=== PATIENT | male | born 1940 | race Caucasian/White ===

== ENCOUNTER → 2019-04-18 | Outpatient (CLI) | payer MEDICARE ==
--- NOTE | 2019-04-18 13:59 | RAD ---
EXAM DESCRIPTION: Pelvis CLINICAL HISTORY: 78 years Male, M25.562, M25.552 COMPARISON: None. FINDINGS: Single view of the pelvis demonstrates advanced degenerative changes both hips without fracture or dislocation. The superior and inferior pubic rami as well as the symphysis pubis and SI joints are intact. No pelvic fracture or soft tissue mass noted. IMPRESSION: Degenerative hips with intact pelvis. Electronically signed by: Chidi Cerrato MD 04/18/2019 1:57 PM CDT
--- NOTE | 2019-04-18 14:01 | RAD ---
EXAM DESCRIPTION: Knee,Left Complete CLINICAL HISTORY: 78 years, Male, M25.562, M25.552 COMPARISON: None TECHNIQUE: Four views left knee FINDINGS: Advanced degenerative changes with [id number] appearance of the medial joint compartment with subchondral sclerosis and better preserved lateral joint compartment noted. Moderate patellofemoral degenerative arthritis with marginal osteophytes is present. No large joint effusion noted. IMPRESSION: 1. Advanced degenerative changes left knee. Electronically signed by: Chidi Cerrato MD 04/18/2019 1:58 PM CDT
== END ==
LOC: RAD 09:05
PROVIDERS: ATTEND Orthopaedic Surgery
DX: Z01.818 Encounter for other preprocedural examination (principal); M16.0 Bilateral primary osteoarthritis of hip; M17.12 Unilateral primary osteoarthritis, left knee

== ENCOUNTER → 2019-05-23 | Day surgery (SDC) | payer MEDICARE ==
--- NOTE | 2019-05-16 13:26 | HP ---
CHIEF COMPLAINT: Knee pain. HISTORY OF PRESENT ILLNESS: Fritz is a 78-year-old male with a history of pain in the knee that has been going on for several years and it has been getting progressively worse. He has had conservative measures which have included anti- inflammatories, occasional assistive devices, injections and activity modification. The pain that he has sometimes reaches level of 8 to 9 and inhibits his activities. It is sharp in nature and occasionally is associated with some mechanical symptoms. X-rays show severe arthritis. Because of that and his failure of conservative measures, he has requested operative intervention. After discussing the risks, benefits and alternatives to that, he has given informed consent for total knee arthroplasty. PAST SURGICAL HISTORY: 1. Herniorrhaphy. 2. Cholecystectomy. 3. Lumbar surgery. MEDICATIONS: None currently. ALLERGIES: TYLENOL, PENICILLIN. CODE STATUS: Full code. IMMUNIZATIONS: Up to date. SOCIAL HISTORY: The patient does not drink, smoke or use any illicit drugs. FAMILY HISTORY: None pertinent to today's complaint. REVIEW OF SYSTEMS: Negative except as indicated in the History of Present Illness. PHYSICAL EXAMINATION: VITAL SIGNS: Blood pressure 109/55. Pulse 72. Height 5'11". Weight 206 pounds. MENTAL STATUS: The patient is awake, alert, and is able to give a good history and participate in the physical. The patient is oriented to person, place and time. SKIN: Normal tone and turgor. HEENT: Normocephalic, atraumatic. Pupils equal, round and reactive. Mucosal membranes are moist. NECK: Normal range of motion. No thyromegaly, no lymphadenopathy. CHEST: Normal respiratory excursion. CARDIAC: Regular rate and rhythm. No murmurs, rubs or gallops. MUSCULOSKELETAL: The bilateral upper extremities show full active range of motion without significant pain. He has intact sensation and they are warm and well perfused. Strength is 5/5. He has no malalignment or crepitus. The right lower extremity shows no pain with range of motion of the hip. He has some minor discomfort with range of motion of the knee. He has crepitus with range of motion of the knee. Sensation is intact. There is no varus/valgus or anterior/posterior laxity. Strength is 5/5. It is warm and well perfused. The left knee shows diffuse pain, especially along the joint-line. The extremity is warm and well perfused. He has crepitus throughout his range of motion and has full extension. Flexion is to about 110 degrees. He has no varus/valgus or anterior/posterior laxity. He has a slight antalgic gait. The hip shows no pain with range of motion. Sensation is intact throughout. It is warm and well perfused. IMAGING: X-rays show severe arthritis. ASSESSMENT: 1. Arthritis. PLAN: The plan at this point is for total knee arthroplasty. We have discussed the risks, benefits, and alternatives to that and the patient has given informed consent. #[id number] [facility]
== END ==
LOC: AMB 05:35
PROVIDERS: ATTEND Orthopaedic Surgery
DX: M17.10 Unilateral primary osteoarthritis, unspecified knee (principal); Z80.0 Family history of malignant neoplasm of digestive organs; Z88.6 Allergy status to analgesic agent; Z53.09 Procedure and treatment not carried out because of other contraindication; Z90.49 Acquired absence of other specified parts of digestive tract

== ENCOUNTER 2019-06-22 14:36 | Emergency (ER) | payer MEDICARE ==
--- NOTE | 2019-06-22 14:52 | ED.PDOC ---
History of Present Illness - General Chief Complaint: Chest Pain/NC Time Seen by Provider: 06/22/19 14:40 Source: patient, family Exam Limitations: no limitations - History of Present Illness Initial Comments: Patient presents with chest pain for 3 hours. Mid-sternal and crushing. Non- radiating. Has improved since onset. Has had previous episodes in the distant past. 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 Associated with dyspnea at onset that has since resolved. No other complaints. The patient said that he is preparing to get knee surgery so he had a "cardiac" workup yesterday. Timing/Duration: 1-3 hours Severity: moderate Improving Factors: nothing Worsening Factors: nothing Associated Symptoms: other - as in HPI Allergies/Adverse Reactions: Allergies Acetaminophen [From Tylenol] Allergy (Verified 05/15/19 10:06) Penicillins Allergy (Verified 05/15/19 10:06) Home Medications: Ambulatory Orders NK 06/22/19 Review of Systems - Review of Systems Constitutional: States: no symptoms reported EENTM: States: no symptoms reported Respiratory: States: see HPI Cardiology: States: see HPI Gastrointestinal/Abdominal: States: no symptoms reported Genitourinary: States: no symptoms reported Musculoskeletal: States: no symptoms reported Skin: States: no symptoms reported Neurological: States: see HPI Endocrine: States: no symptoms reported Hematologic/Lymphatic: States: no symptoms reported Past Medical History (General) - Patient Medical History Hx MRSA: No Family Medical History - Family History Father Living Status: Hx Family Cancer: Yes Physical Exam - Physical Exam General Appearance: Alert Eye Exam: bilateral normal Ears, Nose, Throat: normal ENT inspection Neck: non-tender, full range of motion, supple Respiratory: lungs clear, normal breath sounds Cardiovascular/Chest: normal peripheral pulses, regular rate, rhythm, no edema Gastrointestinal/Abdominal: normal bowel sounds, non tender, soft Back Exam: normal inspection, no CVA tenderness Extremity: normal range of motion, non-tender, normal inspection Neurologic: no motor/sensory deficits, alert, normal mood/affect, oriented x 3 Skin Exam: normal color Lymphatic: no adenopathy Progress - Progress Progress: 06/22/19 17:47 Laboratory Tests 06/22/19 06/22/19 06/22/19 14:55 14:55 14:55 WBC 6.2 RBC 4.89 Hgb 14.8 Hct 43.6 MCV 89.2 MCH 30.3 MCHC 34.0 RDW 14.2 Plt Count 170 MPV 9.0 Absolute Neuts (auto) 2.90 Absolute Lymphs (auto) 2.30 Absolute Monos (auto) 0.80 Absolute Eos (auto) 0.10 Absolute Basos (auto) 0.00 Neutrophils % 46.1 Lymphocytes % 37.5 Monocytes % 13.4 H Eosinophils % 2.3 Basophils % 0.7 PT 9.8 INR 0.98 PTT (SP) 22.7 D-Dimer, Quantitative Sodium 140 Potassium 3.6 Chloride 109 Carbon Dioxide 22 Anion Gap 12.6 BUN 22 H Creatinine 1.24 BUN/Creatinine Ratio 17.7 Random Glucose 90 Serum Osmolality 282.3 Calcium 9.0 Total Bilirubin 0.9 AST 19 ALT 15 Alkaline Phosphatase 38 L Creatine Kinase CK-MB (CK-2) CK-MB (CK-2) % Troponin I B-Natriuretic Peptide Serum Total Protein 6.7 Albumin 3.9 Globulin 2.8 Albumin/Globulin Ratio 1.4 Urine Color Urine Appearance Urine pH Ur Specific Worth[place] Urine Protein Urine Glucose (UA) Urine Ketones Urine Blood Urine Nitrite Urine Bilirubin Urine Urobilinogen Ur Leukocyte Esterase Urine RBC Urine WBC Ur Epithelial Cells Urine Bacteria 06/22/19 06/22/19 06/22/19 14:55 14:55 16:15 WBC RBC Hgb Hct MCV MCH MCHC RDW Plt Count MPV Absolute Neuts (auto) Absolute Lymphs (auto) Absolute Monos (auto) Absolute Eos (auto) Absolute Basos (auto) Neutrophils % Lymphocytes % Monocytes % Eosinophils % Basophils % PT INR PTT (SP) D-Dimer, Quantitative 0.74 H* Sodium Potassium Chloride Carbon Dioxide Anion Gap BUN Creatinine BUN/Creatinine Ratio Random Glucose Serum Osmolality Calcium Total Bilirubin AST ALT Alkaline Phosphatase Creatine Kinase 70 CK-MB (CK-2) 1.1 CK-MB (CK-2) % Not Reportable Troponin I < 0.02 B-Natriuretic Peptide 94.6 Serum Total Protein Albumin Globulin Albumin/Globulin Ratio Urine Color Yellow Urine Appearance Clear Urine pH 6.0 Ur Specific Wortham 1.010 Urine Protein Negative Urine Glucose (UA) Negative Urine Ketones Negative Urine Blood Negative Urine Nitrite Negative Urine Bilirubin Negative Urine Urobilinogen 0.2 Ur Leukocyte Esterase Negative Urine RBC 0 Urine WBC 0-1 Ur Epithelial Cells 0 Urine Bacteria 0 06/22/19 16:55 WBC RBC Hgb Hct MCV MCH MCHC RDW Plt Count MPV Absolute Neuts (auto) Absolute Lymphs (auto) Absolute Monos (auto) Absolute Eos (auto) Absolute Basos (auto) Neutrophils % Lymphocytes % Monocytes % Eosinophils % Basophils % PT INR PTT (SP) D-Dimer, Quantitative Sodium Potassium Chloride Carbon Dioxide Anion Gap BUN Creatinine BUN/Creatinine Ratio Random Glucose Serum Osmolality Calcium Total Bilirubin AST ALT Alkaline Phosphatase Creatine Kinase CK-MB (CK-2) CK-MB (CK-2) % Troponin I < 0.02 B-Natriuretic Peptide Serum Total Protein Albumin Globulin Albumin/Globulin Ratio Urine Color Urine Appearance Urine pH Ur Specific Worth[place] Urine Protein Urine Glucose (UA) Urine Ketones Urine Blood Urine Nitrite Urine Bilirubin Urine Urobilinogen Ur Leukocyte Esterase Urine RBC Urine WBC Ur Epithelial Cells Urine Bacteria ASA 324 mg po x one and nitropaste given. EKG showed NSR. No ST changes nor T wave inversions. No LBBB. Troponin x 2, including one that was 6 hours after the start of the pain, were negative. CXR unremarkable. Patient's chest pain resolved shortly after presentation. He remained asymptomatic during the last 4 hours in the E.D. Care instructions given. E.R. warnings given. Questions were elicited and answered. Patient voiced understanding and agreement with the plan. Departure - Departure Clinical Impression: Chest pain Disposition: Discharge to Home or Self Care Condition: Good Departure Forms: ED Discharge - Pt. Copy, Patient Portal Self Enrollment Instructions: DI for Chest Pain Diet: other - as per your regular physician Activity: other - as per your regular physician Referrals: ABDIEL CLEMENTE [Primary Care Provider] - 1-2 Weeks Home Medications: Ambulatory Orders NK 06/22/19 Additional Instructions: Return to the E.R. for chest pain or shortness of breath. Follow up with your regular physician tomorrow. Critical Care Note - Critical Care Note Total Time (mins): 60
[2019-06-22] MEDS: ASPIRIN (CHEWABLE) 81 MG TAB PO ONE (14:56)
[2019-06-22] MEDS: NITROGLYCERIN 2% 1 GM UD TOP ONE (14:57)
--- NOTE | 2019-06-22 15:37 | RAD ---
EXAM DESCRIPTION: Chest,1 View CLINICAL HISTORY: chest pain COMPARISON: None FINDINGS: Portable frontal view the thorax. No consolidation, effusion or pneumothorax is demonstrated. Heart and mediastinum within normal limits. No acute osseous pathology. IMPRESSION: Negative portable chest. Electronically signed by: Luke Cervantes MD 06/22/2019 3:35 PM CDT
[2019-06-22 17:40] VITALS: BP 119/67; TEMP 98; O2SAT 96
== END 2019-06-22 18:18 | disposition home or self-care (01) ==
LOC: ER 14:36
DX: R07.2 Precordial pain (principal); R06.00 Dyspnea, unspecified; I25.2 Old myocardial infarction; Z88.6 Allergy status to analgesic agent; Z88.0 Allergy status to penicillin

== ENCOUNTER 2019-07-04 05:34 | Inpatient (IN) | payer MEDICARE ==
--- NOTE | 2019-06-30 11:04 | HP ---
CHIEF COMPLAINT: Left knee pain. HISTORY OF PRESENT ILLNESS: Fritz is a 78-year-old male with a history of pain in the left knee. He has had this going on for several years and it has been getting progressively worse. He has had conservative measures which have included anti-inflammatories, assistive devices, injections and activity modifications. The pain that he has sometimes reaches a level of 8 and 9 and inhibits his daily activities. It is sharp in nature and occasionally is associated with some mechanical symptoms. X-rays show severe endstage arthritis and because of his failure of conservative measures, he has requested operative intervention. After discussing the risks, benefits and alternatives to that, he has given informed consent. PAST SURGICAL HISTORY: 1. Herniorrhaphy. 2. Cholecystectomy. 3. Lumbar fusion. MEDICATIONS: None currently. ALLERGIES: TYLENOL, PENICILLIN. CODE STATUS: Full code. IMMUNIZATIONS: Up to date. SOCIAL HISTORY: The patient does not drink, smoke or use any illicit drugs. FAMILY HISTORY: None pertinent to today's complaint. REVIEW OF SYSTEMS: Negative except as indicated in the History of Present Illness. PHYSICAL EXAMINATION: VITAL SIGNS: Blood pressure 149/88. Pulse 57. Height 5'11". Weight 206 pounds. MENTAL STATUS: The patient is awake, alert, and is able to give a good history and participate in the physical. The patient is oriented to person, place and time. SKIN: Normal tone and turgor. HEENT: Normocephalic, atraumatic. Pupils equal, round and reactive. Mucosal membranes are moist. NECK: Normal range of motion. No thyromegaly, no lymphadenopathy. CHEST: Normal respiratory excursion. CARDIAC: Regular rate and rhythm. No murmurs, rubs or gallops. MUSCULOSKELETAL: Bilateral upper extremities show full active range of motion. There is no crepitus, deformity or malalignment. He has intact sensation and strength is 5/5 and equivalent bilaterally. The right lower extremity shows no significant pain with range of motion of the hip. He does have minor discomfort with range of motion of the knee. He has range of motion that has crepitus throughout. Sensation is intact. There is no varus/valgus or anterior/posterior laxity. Strength is 5/5. The leg is warm and well perfused and does show mild effusion. The left knee shows diffuse pain especially along the joint-line medially and laterally. He does have an effusion today. He has crepitus throughout his range of motion, but he maintains full extension with flexion to 110 degrees. He has no varus/valgus or anterior/posterior laxity. He has a slight antalgic gait. The hip shows no pain with range of motion. Sensation is intact. IMAGING: X-rays show severe arthritis. ASSESSMENT: 1. Arthritis. PLAN: The plan at this point is for total knee arthroplasty. We have discussed the risks, benefits, and alternatives to that and the patient has given informed consent. #[id number] [facility]
[2019-07-04] MEDS ORDERED: TRANEXAMIC ACID 1,000 MG/10 ML VIAL ONE ×2 (05:49→05:50)
[2019-07-04] MEDS ORDERED: SODIUM CHL 0.9% 100ML MINI-BAG 100 ML IVPB ONE (05:49)
[2019-07-04] MEDS ORDERED: ceFAZolin SODIUM 1 GM VIAL ONE ×2 (05:49→06:39)
[2019-07-04] MEDS ORDERED: LACTATED RINGERS 1,000 ML ONE (05:49)
[2019-07-04] MEDS ORDERED: VANCOMYCIN HCL INJ 1,000 MG VIAL IVPB ONE ×2 (05:49→16:57)
[2019-07-04] MEDS ORDERED: SODIUM CHLORIDE 0.9% 100ML 100 ML IVPB ONE (05:50)
[2019-07-04] MEDS ORDERED: SODIUM CHLORIDE 0.9% 250ML 250 ML ONE ×2 (05:50→16:56)
[2019-07-04] MEDS ORDERED: KETAMINE HCL 50 MG/ML SYG IV ONE (06:38)
[2019-07-04] MEDS ORDERED: fentaNYL CITRATE INJ 50 MCG/ML AMP ONE (06:38)
[2019-07-04] MEDS ORDERED: MORPHINE SULFATE *EPIDURAL* 0.5 MG/ML VIAL ONE (06:38)
[2019-07-04] MEDS ORDERED: MIDAZOLAM INJ 2 MG/2 ML VIAL ONE ×2 (06:39→06:46)
[2019-07-04] MEDS ORDERED: PROMETHAZINE HCL INJ 12.5 MG in SODIUM CHLORIDE 0.9% 50ML 50 ML IVPB PRN (07:09)
[2019-07-04] MEDS ORDERED: TEMAZEPAM 15 MG CAP PO PRN (07:09)
[2019-07-04] MEDS ORDERED: ALUMINUM & MAGNESIUM HYDROXIDE 30 ML UD PO PRN (07:09)
[2019-07-04] MEDS ORDERED: MORPHINE SULFATE INJ 10 MG/ML VIAL IM PRN (07:09)
[2019-07-04] MEDS ORDERED: ONDANSETRON INJ 4 MG/2 ML VIAL IV PRN (07:09)
[2019-07-04] MEDS ORDERED: NALOXONE HCL INJ 0.4 MG/ML VIAL IV PRN (07:09)
[2019-07-04] MEDS ORDERED: DEX 5% W/NACL 0.45% 1000ML 1,000 ML IVS PRN (07:09)
[2019-07-04] MEDS ORDERED: PROMETHAZINE HCL INJ 25 MG in SODIUM CHLORIDE 0.9% 50ML 50 ML IVPB PRN (07:09)
[2019-07-04] MEDS ORDERED: BENZOCAINE-MENTH LOZ (CEPACOL) 1 EA LOZ MT PRN (07:09)
[2019-07-04] MEDS ORDERED: BISACODYL SUPPOSITORY 10 MG PR PRN (07:09)
[2019-07-04] MEDS ORDERED: ACETAMINOPHEN 325 MG TAB PO PRN (07:09)
[2019-07-04] MEDS ORDERED: MORPHINE SULFATE INJ 10 MG/ML VIAL IV PRN (07:09)
[2019-07-04] MEDS ORDERED: SODIUM CHLORIDE 0.9% (FLUSH) 10 ML SYG IV PRN (07:09)
[2019-07-04] MEDS ORDERED: TRANEXAMIC ACID INJ 1,000 MG in SODIUM CHLORIDE 0.9% 100ML 100 ML IVPB ONE (07:09)
[2019-07-04] MEDS ORDERED: ZOLPIDEM TARTRATE 5 MG TAB PO PRN (07:09)
[2019-07-04] MEDS ORDERED: IV SET AND CAP CHANGE INJ INJ SCH (07:30)
[2019-07-04] MEDS ORDERED: MORPHINE PCA 1 MG/ML 100 ML BAG IVPB SCH (07:30)
[2019-07-04] MEDS: BUPIVACAINE 0.5% 30 ML VIAL INJ ONE ×2 (07:39→09:02)
[2019-07-04] MEDS: BUPIVACAINE LIPOSOME 13.3 MG/ML VIAL INJ ONE ×2 (07:39→09:02)
[2019-07-04] MEDS: ceFAZolin SODIUM 1 GM VIAL ONE ×2 (07:40→09:03)
[2019-07-04] MEDS: VANCOMYCIN HCL INJ 1,000 MG VIAL IVPB ONE ×2 (07:40→09:03)
[2019-07-04] MEDS ORDERED: BUPIVACAINE 0.5% 30 ML VIAL INJ ONE (08:06)
[2019-07-04] MEDS ORDERED: ELECTROLYTE-A 1,000 ML IVS ONE (09:29)
[2019-07-04] MEDS ORDERED: SODIUM CHLORIDE 0.9% 50 ML VIAL INJ ONE (10:00)
[2019-07-04] MEDS ORDERED: diphenhydrAMINE HCL 50 MG/ML VIAL IV ONE (10:00)
[2019-07-04] MEDS ORDERED: LIDOCAINE 1% 10 ML VIAL INJ ONE (10:00)
[2019-07-04] MEDS ORDERED: PROPOFOL 200 MG/20 ML VIAL IV ONE (10:00)
[2019-07-04] MEDS ORDERED: DEXAMETHASONE INJ 10 MG/ML VIAL IV ONE (10:00)
[2019-07-04] MEDS ORDERED: raNITIdine HCL INJ 25 MG/ML VIAL IV ONE (10:00)
[2019-07-04] MEDS ORDERED: MEPERIDINE HCL 50 MG/ML VIAL ONE (10:17)
--- NOTE | 2019-07-04 10:18 | RAD ---
PROVIDED CLINICAL HISTORY/REASON FOR EXAM: LEFT TKA Findings/impression: One intraoperative fluoroscopic images of a left total knee arthroplasty which is partially visualized. Dose: Not provided Time: 15 seconds Electronically signed by: Meir Padilla MD 07/04/2019 10:17 AM CDT
--- NOTE | 2019-07-04 11:38 | RAD ---
EXAM DESCRIPTION: Knee,Left 1 or 2 Views CLINICAL HISTORY: 78 years, Male, TKA COMPARISON: 04/18/2019 TECHNIQUE: Frontal and lateral views of the left knee FINDINGS/IMPRESSION: Recent postoperative changes of left total knee arthroplasty in satisfactory alignment without perihardware fracture or evidence of hardware complication. Expected postsurgical gas and soft tissue changes. Electronically signed by: Ihsan Dos Santos DO 07/04/2019 11:37 AM CDT
[2019-07-04] MEDS: MAGNESIUM OXIDE 400 MG TAB PO SCH (12:44)
[2019-07-04] MEDS: CELECOXIB 100 MG CAP PO SCH ×2 (12:44→17:29)
[2019-07-04] MEDS ORDERED: ceFAZolin SODIUM 2 GRAMS PREMI 50 ML IVPB ONE ×2 (15:17→20:03)
--- NOTE | 2019-07-04 15:58 | CONS ---
SUPERVISING PHYSICIAN: Chidi Mead MD DATE OF CONSULTATION: 07/04/19 HISTORY OF PRESENT ILLNESS: This is a 78-year-old male patient that has had a longstanding history of left knee pain that has been going on for several years and has progressively worsened. He has tried conservative measures including anti-inflammatories, assistive devices, injections and activity modifications. He requested Dr. Kristopher Vazquez, orthopedic surgeon, for operative intervention and today the patient was admitted to the hospital for a left total knee arthroplasty performed by Dr. Kristopher Vazquez, orthopedic surgeon. He had no problems intraoperatively and I am seeing the patient postoperatively in the Medical/Surgical Floor. PAST MEDICAL HISTORY: None. PAST SURGICAL HISTORY: 1. Herniorrhaphy. 2. Cholecystectomy. 3. Lumbar fusion. OUTPATIENT MEDICATIONS: None. ALLERGIES: TYLENOL, PENICILLIN. FAMILY HISTORY: Noncontributory. SOCIAL HISTORY: He lives in [place]. He is . He does not smoke, drink alcoholic beverages or use illicit drugs. He does use smokeless tobacco. REVIEW OF SYSTEMS: Negative except as per history of present illness. PHYSICAL EXAMINATION: VITAL SIGNS: Temperature 98. Heart rate 70. Blood pressure 131/81. Respiratory rate 18. O2 saturation 97% on room air. GENERAL: This is a 78-year-old male patient who looks younger than his stated age. He is in no acute distress. HEENT: Normocephalic, atraumatic. Pupils are equal and reactive. Oropharynx is clear. Mucous membranes are moist. NECK: Supple without mass. RESPIRATORY: Essentially clear to auscultation bilaterally. CHEST: There is equal rise and fall of the chest with inspiration and expiration. CARDIOVASCULAR: Regular rate and rhythm. GASTROINTESTINAL: Abdomen is soft, nondistended, nontender. Bowel sounds are positive. EXTREMITIES: His left leg is in the CPM machine. He has an Iceman in place. His dressing with Torey bandage to his left knee is dry and intact. Bilateral pedal pulses are +2. NEUROLOGIC: Awake, alert and oriented times three. Cranial nerves II-XII are grossly intact. LABORATORY: CBC is unremarkable. Electrolytes are basically within normal limits with a slightly elevated BUN of 22. Urinalysis is negative. UDS is negative. RADIOLOGY: His radiology reports are per the EMR. IMPRESSION: 1. Arthritis of the left knee status post total knee arthroplasty performed by Dr. Kristopher Vazquez, orthopedic surgeon, postoperative day #0. PLAN: We will continue present supportive care. Orthopedic issues will be per Dr. Kristopher Vazquez, orthopedic surgeon. He will continue with his physical therapy for strengthening and rehabilitation tomorrow morning. We will transition him from the [employer] pump to oral pain medications as well as advance his diet. At this point, he has no home medications to restart. I have encouraged good pulmonary hygiene. We will continue to monitor the patient closely and follow as needed. #[id number] [facility]
[2019-07-04] MEDS: ceFAZolin SODIUM 2 GRAMS PREMI 2 GM in PREMIX BAG 1 BAG IVPB SCH ×2 (16:12→23:33)
[2019-07-04] MEDS: VANCOMYCIN HCL INJ 1,000 MG in SODIUM CHLORIDE 0.9% 250ML 250 ML IVPB SCH (17:29)
[2019-07-04] MEDS ORDERED: ENOXAPARIN SODIUM 30 MG/0.3 ML SYG SUBCU ONE (20:03)
[2019-07-04] MEDS ORDERED: SODIUM CHLORIDE 0.9% 50ML 50 ML ONE (20:04)
[2019-07-04] MEDS ORDERED: PROMETHAZINE HCL INJ 25 MG/ML VIAL ONE (20:04)
[2019-07-04] MEDS: DOCUSATE CALCIUM 240 MG CAP PO SCH (20:34)
[2019-07-04] MEDS: ENOXAPARIN SODIUM 30 MG/0.3 ML SYG SUBCU SCH (23:32)
[2019-07-05] MEDS ORDERED: SODIUM CHLORIDE 0.9% 250ML 250 ML ONE (05:38)
[2019-07-05] MEDS ORDERED: VANCOMYCIN HCL INJ 1,000 MG VIAL IVPB ONE (05:38)
[2019-07-05] MEDS: VANCOMYCIN HCL INJ 1,000 MG in SODIUM CHLORIDE 0.9% 250ML 250 ML IVPB SCH (05:41)
[2019-07-05] MEDS ORDERED: ceFAZolin SODIUM 2 GRAMS PREMI 50 ML IVPB ONE (07:12)
[2019-07-05] MEDS: ceFAZolin SODIUM 2 GRAMS PREMI 2 GM in PREMIX BAG 1 BAG IVPB SCH (07:43)
[2019-07-05] MEDS: CELECOXIB 100 MG CAP PO SCH ×2 (07:43→17:12)
[2019-07-05] MEDS: MAGNESIUM OXIDE 400 MG TAB PO SCH (09:17)
[2019-07-05] MEDS: ENOXAPARIN SODIUM 30 MG/0.3 ML SYG SUBCU SCH ×2 (11:47→23:29)
[2019-07-05] MEDS: traMADol HCL 50 MG TAB PO PRN (20:14)
[2019-07-05] MEDS: CYCLOBENZAPRINE HCL 10 MG TAB PO PRN (20:14)
[2019-07-05] MEDS: DOCUSATE CALCIUM 240 MG CAP PO SCH (20:14)
--- NOTE | 2019-07-05 21:14 | PN ---
DATE: 07/05/19 SUPERVISING PHYSICIAN: Chidi Mead M.D. SUBJECTIVE: The patient is resting comfortably. He did work with Physical Therapy today and says his pain is fairly well controlled. He has had a little bit of nausea but no actual vomiting. OBJECTIVE: VITAL SIGNS: Temperature 98.1, pulse 75, blood pressure 125/78, respirations 18, satting 97% on room air. I's and O's show weight of 96.9 kg. GENERAL: The patient is resting comfortably and he appears to be in no acute distress. He just finished his physical therapy. CHEST: Lungs were clear to auscultation bilaterally. HEART: Regular rate and rhythm. ABDOMEN: Soft, non-tender. Positive bowel sounds. EXTREMITIES: Left knee has a bulky dressing in place with an Torey bandage. Pulses distally were strong, capillary refill is brisk. NEUROLOGIC: He is alert and oriented times three. LABORATORY: Postoperative H&H shows 12.6 and 36.8 respectively. RADIOLOGY: No radiographic studies to review. ASSESSMENT: 1. Arthritis of the left knee status post total knee arthroplasty performed by Dr. Kristopher Vazquez, orthopedic surgeon, postoperative day #1. PLAN: Will continue to follow the patient as she progresses through her physical therapy and rehabilitation efforts. I think at this point the plan is possibly to discharge tomorrow or at least by Wednesday. He will have [facility]. Continue to encourage good pulmonary hygiene. Until we can discharge to outpatient management will continue to follow as needed. #[id number] [facility]
[2019-07-06] MEDS: CELECOXIB 100 MG CAP PO SCH ×2 (07:32→17:00)
--- NOTE | 2019-07-06 08:00 | PN ---
DATE: 07/05/19 SUBJECTIVE: He is doing very well. His pain is well controlled. OBJECTIVE: Afebrile. Vital signs stable. Dressing is clean, dry and intact. ASSESSMENT: Status post total knee arthroplasty. PLAN: The plan at this point is for continued weightbearing as tolerated. [facility][id number] [facility]
--- NOTE | 2019-07-06 08:02 | PN ---
DATE: 07/04/19 POSTOPERATIVE CHECK SUBJECTIVE: Mr. Duong is doing well. He has no pain. OBJECTIVE: Afebrile. Vital signs stable. Dressing is clean, dry and intact. ASSESSMENT: Status post total knee arthroplasty. PLAN: The plan is to begin weightbearing as tolerated on postoperative day 1. #[id number] [facility]
[2019-07-06] MEDS: traMADol HCL 50 MG TAB PO PRN ×3 (08:06→21:31)
--- NOTE | 2019-07-06 08:21 | OP ---
DATE OF PROCEDURE: 07/04/19 PREOPERATIVE DIAGNOSIS: 1. Arthritis of the left knee. POSTOPERATIVE DIAGNOSIS: 1. Arthritis of the left knee. PROCEDURE: 1. Total knee arthroplasty. SURGEON: Kristopher Vazquez MD. TUNNEL MUCKER: Reji Archibald CST, SA-C. ANESTHESIA: General anesthesia. COMPLICATIONS: None. FINDINGS: Severe arthritis of the knee. INDICATION: Mr. Duong has a long history of pain with failed conservative measures for the arthritis in his knee. Because of his ongoing symptoms and failure of conservative measures, he has requested operative intervention. After discussing the risks, benefits and alternatives to that, the patient has given informed consent for total knee arthroplasty. PROCEDURE: The patient was brought to the Operating Room and placed in supine position. General anesthesia was induced and the patient's leg was sterilely prepped and draped. Following prepping and draping, the distal femur was exposed and using an intramedullary guide, the distal femoral cut was made. The appropriate sized cutting block was measured, pinned into place, and the anterior, posterior, and chamfer cuts were made. The ACL was transected and the tibia was subluxed. Both the medial and lateral menisci were removed. An intramedullary guide was used to make the proximal tibial cut. The appropriate sized base plate was placed and a trial polyethylene was placed. The trial femur was placed, the knee was reduced, and the knee was taken through a range of motion. The knee was stable in anterior, posterior, varus and valgus stress. The patella tracked anatomically without evidence of subluxation or dislocation. After trialing, the trial components were removed and the bony surfaces were thoroughly irrigated with saline. Following irrigation, the surfaces were dried and the final components were cemented into place. The excess cement was removed and the remaining cement was allowed to cure. The knee was again taken through a range of motion to confirm stability. The wound was then irrigated with saline and closure was performed using PDS to approximate the arthrotomy followed by closure of the subcutaneous tissues with a combination of running and interrupted Monocryl sutures. Sterile dressing was placed. The patient was awoken from anesthesia and taken to Recovery. POSTOPERATIVE PLAN: The patient will be weight-bearing as tolerated on postoperative day 1. [facility][id number] [facility]
[2019-07-06] MEDS: MAGNESIUM OXIDE 400 MG TAB PO SCH (08:43)
[2019-07-06] MEDS: SODIUM CHLORIDE 0.9% (FLUSH) 10 ML SYG IV SCH ×2 (08:43→20:17)
[2019-07-06] MEDS: ENOXAPARIN SODIUM 30 MG/0.3 ML SYG SUBCU SCH ×2 (10:57→22:56)
[2019-07-06] MEDS: MAGNESIUM HYDROXIDE 30 ML UD PO PRN (14:05)
[2019-07-06] MEDS: DOCUSATE CALCIUM 240 MG CAP PO SCH (20:18)
[2019-07-06] MEDS: CYCLOBENZAPRINE HCL 10 MG TAB PO PRN (20:18)
--- NOTE | 2019-07-06 21:13 | PN ---
DATE: 07/06/19 SUPERVISING PHYSICIAN: Chidi Mead M.D. SUBJECTIVE: The patient has been doing well. He was anticipating hopefully going home today, however arrangements at home are still not in place as his is not fully able to assist with him. He has not had any more nausea. He is passing gas. He has had no further complaints. His pain is well controlled. OBJECTIVE: VITAL SIGNS: Temperature 98.1, pulse 77, blood pressure 133/72, respirations 20, satting 97% on room air. I's and O's show a negative balance of 370 with weight 96.9 kg. GENERAL: The patient appears to be comfortable in no acute distress. CHEST: Lungs were clear to auscultation. HEART: Regular rate and rhythm. ABDOMEN: Soft, non-tender. Positive bowel sounds. EXTREMITIES: Left knee has a bulky Torey bandage dressing in place. Distally pulses are strong, capillary refill is brisk. NEUROLOGIC: He is alert and oriented times three. ASSESSMENT: 1. Arthritis of the left knee status post total knee arthroplasty performed by Dr. Kristopher Vazquez, orthopedic surgeon, postoperative day #2. PLAN: Will continue to follow the patient as he is in his rehabilitation and physical therapy program. I do anticipate he will discharge tomorrow. Until we can discharge to outpatient and continue with [facility] will continue to monitor and treat as needed. #[id number] [facility]
[2019-07-07] MEDS: CELECOXIB 100 MG CAP PO SCH (07:27)
--- NOTE | 2019-07-07 07:49 | PN ---
DATE: 07/06/19 SUBJECTIVE: Mr. Duong is doing well. He is ambulating. OBJECTIVE: Afebrile. Vital signs stable. The wound is clean. There are no signs or symptoms of infection. ASSESSMENT: Status post total knee arthroplasty. PLAN: The plan today is for him to discharge with therapy on an outpatient basis. He has been instructed to return immediately should any change in his condition occur. Otherwise, we will see him in routine followup in about 2 weeks. [facility][id number] [facility]
--- NOTE | 2019-07-07 08:46 | PN ---
DATE: 07/07/19 SUBJECTIVE: Mr. Duong is doing pretty well. OBJECTIVE: Afebrile. Vital signs stable. The wound is clean. There are no signs or symptoms of infection. ASSESSMENT: Status post total knee arthroplasty. PLAN: The plan at this point is for him to likely be discharged. He will begin physical therapy on Wednesday. He has been instructed to return immediately should any change in his condition occur. #[id number] [facility]
[2019-07-07] MEDS: MAGNESIUM OXIDE 400 MG TAB PO SCH (08:50)
[2019-07-07] MEDS: SODIUM CHLORIDE 0.9% (FLUSH) 10 ML SYG IV SCH (08:50)
[2019-07-07] MEDS: MAGNESIUM HYDROXIDE 30 ML UD PO PRN (08:50)
[2019-07-07] MEDS: ENOXAPARIN SODIUM 30 MG/0.3 ML SYG SUBCU SCH (10:25)
[2019-07-07 10:46] VITALS: BP 127/71; TEMP 98.3; O2SAT 95
[2019-07-07] MEDS ORDERED: BISACODYL SUPPOSITORY 10 MG PR ONE (21:00)
[2019-07-07] MEDS ORDERED: MAGNESIUM HYDROXIDE 30 ML UD PO ONE (21:00)
--- NOTE | 2019-07-18 13:29 | DS ---
SUPERVISING PHYSICIAN: Chidi Mead MD ADMISSION DIAGNOSIS: 1. Arthritis of the left knee status post total knee arthroplasty performed by Dr. Kristopher Vazquez, orthopedic surgeon, postoperative day #0. DISCHARGE DIAGNOSIS: 1. Arthritis of the left knee status post total knee arthroplasty performed by Dr. Kristopher Vazquez, orthopedic surgeon, postoperative day #3. REASON FOR HOSPITALIZATION: This is a 78-year-old male patient that has had a longstanding history of left knee pain that has been going on for several years and has progressively worsened. He has tried conservative measures including anti-inflammatories, assistive devices, injections and activity modifications. He requested Dr. Kristopher Vazquez, orthopedic surgeon, for operative intervention and today the patient was admitted to the hospital for a left total knee arthroplasty performed by Dr. Kristopher Vazquez, orthopedic surgeon. He had no problems intraoperatively and I am seeing the patient postoperatively in the Medical/Surgical Floor. LABORATORY: Postoperative hemoglobin 12.6, hematocrit 36.8. Preoperative CBC was within normal limits. Preoperative BMP was within normal limits except for slightly elevated BUN of 22. Urinalysis was within normal limits. Urine drug screen was negative as tested. MICROBIOLOGY: MRSA surveillance negative. RADIOLOGY: Postoperative knee x-ray of left knee showed recent postoperative changes with left knee arthroplasty in satisfactory alignment without flower- hardware fracture or evidence of hardware complications. Please see that report for details. PROCEDURES: Left total knee arthroplasty performed by Dr. Kristopher Vazquez. Please see his operative note for details. MEDICAL CONSULTATION: Hospitalist services. Please see notes for details. HOSPITAL COURSE: Mr. Duong was admitted on 07/04/19 for elective left total knee arthroplasty. He was without any complications intraoperatively and was followed postoperatively without any complications. He progressed well with his physical therapy and on the day of discharge was felt well enough to continue with outpatient management. PLAN: Mr. Duong is discharged on 07/07/19 to continue with outpatient management and [facility]. He was to resume his medications as directed and return to the hospital or call Dr. Vazquez or if he had any worsening or concerning symptoms. Diet at discharge was usual diet. Activity to ambulate with a walker as per physical therapy and increase as tolerated. MEDICATIONS ON DISCHARGE: 1. Pain management prescribed by Dr. Vazquez with Vicoprofen 7.25-200 mg 1 q.4h. as needed, #30, no refills. 2. Flexeril 10 mg q.8h. as needed, #20, no refills. 3. Xarelto 10 mg a day, #8, no refills. All other medications as per prior to admission were continued. DISPOSITION: The patient was discharged home. CONDITION ON DISCHARGE: Stable and improved. [id number]
== END 2019-07-07 11:00 | disposition home or self-care (01) | DRG 470 ==
LOC: AMB 05:34 → MS 10:55
PROVIDERS: ADMIT Orthopaedic Surgery; ATTEND Nurse Practitioner Family
PROC: 0SRD0J9 Replacement of Left Knee Joint with Synthetic Substitute, Cemented, Open Approach (ICD-10-PCS; principal; 2019-07-04 06:47)
DX: M17.12 Unilateral primary osteoarthritis, left knee (principal); Z88.0 Allergy status to penicillin; Z88.6 Allergy status to analgesic agent

== ENCOUNTER → 2019-07-25 | Outpatient (CLI) | payer MEDICARE ==
--- NOTE | 2019-07-25 13:53 | US ---
EXAM DESCRIPTION: Venous,Lower Extremity LT: ULTRASOUND. CLINICAL HISTORY: EDEMA. Left lower extremity. Arthroscopic surgery left knee 07/04/2019. COMPARISON: None Available. TECHNIQUE: Mac-scale and doppler sonographic evaluation of the deep venous system of the left lower extremity. FINDINGS: Doppler evaluation shows normal color flow and normal phasicity and augmentation of the left common femoral vein, deep femoral vein, femoral vein, popliteal vein, greater saphenous vein junction with the common femoral vein, peroneal, and posterior tibial vein. The left lower extremity deep veins were completely compressible; normal occlusion with transducer pressure. Mac-scale survey showed no echogenic thrombus within these veins. IMPRESSION: 1. Duplex ultrasound evaluation of the left lower extremity deep venous system showing no evidence of thrombosis. Electronically signed by: Reji Reeder MD 07/25/2019 1:51 PM CDT
== END ==
LOC: US 12:02
PROVIDERS: ATTEND Orthopaedic Surgery
DX: R60.9 Edema, unspecified (principal); M25.562 Pain in left knee